=== PATIENT | male | born 1995 | race Caucasian/White ===

== ENCOUNTER 2022-10-19 15:34 | Emergency (ER) | payer OTHER, SELFPAY ==
[2022-10-19 15:35] VITALS: BP 164/87; PULSE 89; RESP 18; TEMP 37.4; O2SAT 99
--- NOTE | 2022-10-19 15:40 | ED.PSYCH ---
HPI - Psych General Chief Complaint: Psychiatric Symptoms Stated Complaint: Hallucinations Time Seen by Provider: 10/19/22 15:40 Source: patient and RN notes reviewed Mode of arrival: EMS Limitations: no limitations History of Present Illness HPI Narrative: Patient states he has had a history of anxiety depression PTSD. He has been hearing voices that telling me he is worthless and no good. He denies any thoughts hurting himself or hurting others. He has an appointment in 2 days with his psychiatrist. complaint: other ( Voices are yelling at him) Onset (ago): hour(s) (8) Duration: constant History of same: Yes Relieving factors: none Exacerbating factors: none Associated psychiatric symptoms: auditory hallucinations Associated symptoms: denies other symptoms and other Treatments prior to arrival: none Related Data Home Medications Medication Instructions Recorded Confirmed bupropion HCl 150 mg tablet,12 hr 150 mg PO DAILY 10/19/22 10/19/22 sustained-release risperidone 0.5 mg tablet 0.5 mg PO BID 10/19/22 10/19/22 (Risperdal) Allergies Allergy/AdvReac Type Severity Reaction Status Date / Time No Known Allergies Allergy Verified 10/19/22 15:48 Review of Systems Review of Systems: All systems reviewed & are unremarkable except as noted in HPI and below Psychiatric: Psychiatric: Denies homicidal ideation and Denies suicidal ideation PMFSH Past Medical History Medical History (Updated 10/19/22 @ 18:46 by Angelo Herring MD) Anxiety and depression PTSD (post-traumatic stress disorder) Surgical History Surgical History (Updated 10/19/22 @ 15:47 by Angelo Herring MD) History of tonsillectomy and adenoidectomy Social History Social History (Updated 10/19/22 @ 16:47 by Angelo Herring MD) Smoking packs per day: 1 Smoking cigarettes per day: 20.0 Smoking status: Current every day smoker Tobacco type: cigarettes and e-cigarettes/vaping Substance use: current Substance use type: marijuana Other substance usage details: Daily Exam Const: General: healthy appearing, no acute distress and alert Nutritional Appearance: well nourished and obese morbidly obese Orientation/consciousness: patient oriented x3 Limitations: no limitations HENMT: Head: normal to inspection Ears: external ears normal Face/Nose/Sinus: Normal external nose present Face and sinus: normal facial exam Mouth: Yes moist mucous membranes abnormal Eyes: Conjunctivae: conjunctivae normal Pupils: Equal, round and reactive pupils present EOM: EOMs intact bilaterally Neck: Neck: normal visual inspection Resp: Effort & Inspection: normal respiratory effort Auscultation: clear to auscultation bilaterally Cardio: Rate: regular rate Rhythm: regular rhythm GI: GI Palp: Yes Soft to palpation and No Tenderness to palpation present (GI) Auscultation: normal bowel sounds Back/Spine/Pelvis: Cervical Spine: cervical ROM normal Thoracic/Lumbar Spine: thoraco-lumbar ROM normal Skin: General skin exam: normal color Rashes: no rashes Neuro: General: patient oriented x3, moves all extremities, no focal motor deficits and CN's II-XI intact bilaterally Speech: normal speech Gait exam (Neuro): Normal gait present Extrem: General: normal to inspection and no clubbing, cyanosis or edema Psych: Affect: normal affect Attitude: cooperative Course Course Emergency Course: [facility] counselor here and have evaluated the patient feel he can be deflected home with a safety plan. He will follow-up with his psychiatrist in 2 days as scheduled. Vital Signs Vital signs: Vital Signs Temperature 37.4 C 10/19/22 15:35 Pulse Rate 89 10/19/22 15:35 Respiratory Rate 18 10/19/22 15:35 Blood Pressure 164/87 H 10/19/22 15:35 Pulse Oximetry 99 10/19/22 15:35 Oxygen Delivery Room Air 10/19/22 15:35 Temperature 36.7 C 10/19/22 17:00 Pulse Rate 84 10/19/22 17:00 Respiratory Rate 16 09/29
[2022-10-19 16:16] LABS: Basophils Absolute Auto 0.05 K/mm3 (0.00-0.10); Basophils Percent Auto 0.6 % (0.0-1.0); Eosinophils Absolute Auto 0.17 K/mm3 (0.02-0.50); Eosinophils Percent Auto 1.9 % (1.0-6.0); Hematocrit 38.7 % (40.0-54.0); Hemoglobin 13.6 g/dL (14.0-18.0); Immature Granulocyte Absolute 0.05 K/mm3 (0.00-0.00); Immature Granulocyte Percent A 0.6 % (0.0-0.0); Lymphocytes Absolute Auto 1.95 K/mm3 (1.10-4.50); Lymphocytes Percent Auto 21.6 % (18.0-42.0); Mean Corpuscular HGB Conc 35.1 g/dL (32.0-36.0); Mean Corpuscular Hemoglobin 32.7 pg (27.0-31.0); Mean Platelet Volume 9.2 fl (8.7-11.0); Monocytes Absolute Auto 0.67 K/mm3 (0.10-0.90); Monocytes Percent Auto 7.4 % (2.0-11.0); Neutrophils Absolute Auto 6.1 K/mm3 (1.7-7.2); Neutrophils Percent Auto 67.9 % (50.0-70.0); Platelet Count Result 246 K/mm3 (150-420); Red Blood Count 4.16 M/mm3 (4.70-6.10); Red Cell Distribution Width 12.1 % (11.6-14.4)
[2022-10-19 16:18] LABS: Appearance Urine Clear (Clear); Bilirubin Urine Negative (Negative); Blood Urine Negative (Negative); Color Urine Light Yellow (Yellow); Glucose Urine UA Negative (Negative); Ketones Urine Negative (Negative); Leukocyte Esterase Ur Negative LEU/UL (Negative); Nitrate Urine Negative (Negative); Protein Urine Trace (Negative); Urobilinogen Urine 0.2 mg/dL (0.2-1.0); pH Urine 6.5 (5.0-8.0)
[2022-10-19 16:33] LABS: Amphetamine Screen Urine Negative (Negative); Barbiturate Screen Urine Negative (Negative); Benzodiazepines Screen Urine Negative (Negative); Cannabinoid Screen Urine Positive (Negative); Cocaine Screen Urine Negative (Negative); Methadone Screen Urine Negative (Negative); Opiate Screen Urine Negative (Negative); Phencyclidine Screen Urine Negative (Negative)
[2022-10-19 16:34] LABS: Add Urine Microscopic? YES; Bacteria Urine None seen /hpf; RBC Urine None seen /hpf (0-2); Squamous Epithelial Cell Urine Rare /hpf (Few); WBC Urine None seen /hpf (0-3)
[2022-10-19 16:40] LABS: Acetaminophen 0 ug/mL (10-30); Alanine Aminotransferase 41 U/L (16-63); Albumin Level 3.5 g/dL (3.4-5.0); Alkaline Phosphatase 74 U/L (46-116); Anion Gap 7 mmol/L (8-16); Aspartate Amino Transferase 32 U/L (15-37); Bilirubin,Total 0.4 mg/dL (0.00-1.00); Blood Urea Nitrogen 10 mg/dL (7-18); Calcium 11.9 mg/dL (8.5-10.1); Carbon Dioxide 29 mmol/L (21-32); Chloride 105 mmol/L (98-108); Estimated CRCL calculation 185 ml/min; Estimated Glomerular Filt Rate > 60; Ethanol < 3 mg/dL (0-6); Glucose 130 mg/dL (70-99); Osmolality Calculated 293 mOsm/kg (285-295); Potassium 4.2 mmol/L (3.5-5.1); Salicylate 1.4 mg/dL (2.8-20.0); Sodium 141 mmol/L (136-145); Thyroid Stimulating Hormone 2.34 uIU/mL (0.36-3.74); Total Protein 7.2 g/dL (6.4-8.2)
[2022-10-19 17:00] VITALS: BP 132/79; PULSE 84; RESP 16; TEMP 36.7; O2SAT 97
[2022-10-19 19:00] VITALS: BP 152/75; PULSE 75; RESP 16; TEMP 36.7; O2SAT 100
== END 2022-10-19 19:18 | disposition home or self-care (01) ==
PROVIDERS: Emergency Provider Emergency Medicine
DX: F25.9 Schizoaffective disorder, unspecified (principal); F41.9 Anxiety disorder, unspecified; F32.A Depression, unspecified; F17.210 Nicotine dependence, cigarettes, uncomplicated
CPT/HCPCS: 36415; 80053; 80307; 81001; 84443; 85025; 99284

== ENCOUNTER 2024-08-30 10:06 | Emergency (ER) | payer SELFPAY ==
[2024-08-30] VITALS (11 sets, daily range): BP systolic 169–186; BP diastolic 87–109; PULSE 98–118; RESP 19–27; TEMP 36.2; O2SAT 93–97
--- NOTE | 2024-08-30 10:14 | ECG_ITS ---
Test Date: 2024-08-30 10:21:54 Measurements Intervals [place] Rate: 98 P: 63 GA: 174 QRS: 28 QRSD: 120 T: 123 QT: 325 QTc: 416 Interpretive Statements SINUS RHYTHM WITH MARKED SINUS ARRHYTHMIA MODERATE INTRAVENTRICULAR CONDUCTION DELAY [110+ ms QRS DURATION] ST DEVIATION AND MODERATE T-WAVE ABNORMALITY, CONSIDER LATERAL ISCHEMIA [-0.1+ mV T-WAVE IN I/aVL/V5/V6] No previous ECG available for comparison Electronically Signed On 09-03-2024 22:36:35 CDT by Yancy Meek M.D.
[2024-08-30 10:27] LABS: Hematocrit 40.8 % (40.0-54.0); Hemoglobin 14.2 g/dL (14.0-18.0); Immature Granulocyte Percent A 0.4 % (0.0-0.0); Lymphocytes Absolute Auto 1.49 K/mm3 (1.10-4.50); Mean Corpuscular HGB Conc 34.8 g/dL (32-36); Mean Corpuscular Hemoglobin 31.8 pg (27.0-31.0); Mean Corpuscular Volume 91.5 fL (78.0-102.0); Nucleated Red Blood Cells Absolute Auto 0.00 K/mm3 (0.00-0.00); Nucleated Red Blood Cells Perc 0.0 % (0-0.0); Platelet Count Result 236 K/mm3 (150-420); Red Blood Count 4.46 M/mm3 (4.70-6.10); White Blood Count 6.8 K/mm3 (4.8-10.8)
[2024-08-30 10:40] LABS: Alanine Aminotransferase 71 U/L (6-50); Albumin Level 4.2 g/dL (3.5-5.1); Alkaline Phosphatase 92 U/L (38-126); Anion Gap 6 mmol/L (4-12); Aspartate Amino Transferase 54 U/L (17-59); Bilirubin,Total 0.7 mg/dL (0.2-1.3); Blood Urea Nitrogen 14 mg/dL (9-20); Calcium 11.7 mg/dL (8.4-10.2); Carbon Dioxide 25 mmol/L (22-30); Chloride 108 mmol/L (98-107); Estimated CRCL calculation 226 ml/min; Estimated Glomerular Filt Rate > 60; Glucose 264 mg/dL (65-110); Osmolality Calculated 297 mOsm/kg (285-295); Potassium 4.0 mmol/L (3.4-5.0); Sodium 139 mmol/L (137-145); Total Protein 7.4 g/dL (6.3-8.2)
[2024-08-30 10:53] LABS: Troponin I < 0.012 ng/mL (0.000-0.034)
--- NOTE | 2024-08-30 10:56 | ED.GENADULT ---
HPI - General Adult General Chief complaint: Unspecified Stated complaint: concerns of blood pressure Time Seen by Provider: 08/30/24 10:12 Source: patient Mode of arrival: ambulatory Limitations: no limitations History of Present Illness HPI narrative: this is a 29-year-old male with history of morbid obesity presents with elevated blood pressure has been having abnormal blood pressure readings in the past but today while at work had a higher than usual reading, patient has no blurry vision no headache no chest pain or shortness of breath no fever chills no abdominal pain no flank pain no dysuria. Onset (ago): day(s) Related Data Home Medications ?Medication ?Instructions ?Recorded ?Confirmed ?Last Taken ?Type bupropion HCl 150 mg tablet,12 hr 150 mg PO DAILY 10/19/22 10/19/22 Unknown History sustained-release risperidone 0.5 mg tablet 0.5 mg PO BID 10/19/22 10/19/22 Unknown History (Risperdal) Allergies Allergy/AdvReac Type Severity Reaction Status Date / Time No Known Allergies Allergy Verified 08/30/24 10:27 Review of Systems Review of Systems: All systems reviewed & are unremarkable except as noted in HPI and below PMFSH Past Medical History Medical History Anxiety and depression PTSD (post-traumatic stress disorder) Surgical History Surgical History History of tonsillectomy and adenoidectomy Social History Social History Smoking packs per day: 1 Smoking cigarettes per day: 20.0 Smoking status: Current every day smoker Tobacco type: cigarettes and e-cigarettes/vaping Substance use: current Substance use type: marijuana Other substance usage details: Daily Exam Const: General: cooperative, healthy appearing, comfortable, no acute distress and well developed Eyes: General: appearance normal, both eyes and all related structures Neck: Neck: normal visual inspection, full ROM, no lymphadenopathy and no meningeal signs Chest: Chest palpation & inspection: normal inspection of the chest and normal palpation of entire chest wall Resp: Effort & Inspection: normal respiratory effort and able to speak in complete sentences Cardio: Jugular venous distension: no JVD Palpation: normal PMI Rate: regular rate Rhythm: regular rhythm Heart sounds: S1 normal heart sound present and S2 normal heart sound present GI: Inspection: normal to inspection : General: Yes bimanual renal exam normal bilaterally Course Course Emergency Course: Patient had elevated blood pressure of 180/108, EKG shows some normal sinus rhythm had blood work performed including troponin which was negative. Patient received 50mg of propofol which after reassessment blood pressure has improved. Advised patient to follow with his primary for further evaluation and treatment will be sending medication to control blood pressure to his local pharmacy. Vital Signs Vital signs: Vital Signs Temperature 36.2 C L 08/30/24 10:06 Pulse Rate 114 H 08/30/24 10:06 Respiratory Rate 27 H 08/30/24 10:06 Blood Pressure 180/108 H 08/30/24 10:06 Pulse Oximetry 93 08/30/24 10:06 Oxygen Delivery Room Air 08/30/24 10:06 Temperature 36.2 C L 08/30/24 10:06 Pulse Rate 118 H 08/30/24 10:10 Respiratory Rate 27 H 08/30/24 10:06 Blood Pressure 180/108 H 08/30/24 10:06 Pulse Oximetry 93 08/30/24 10:06 Oxygen Delivery Room Air 08/30/24 10:06 Medical Decision Making Vital Signs Vital Signs: Vital Signs Temperature 36.2 C L 08/30/24 10:06 Pulse Rate 114 H 08/30/24 10:06 Respiratory Rate 27 H 08/30/24 10:06 Blood Pressure 180/108 H 08/30/24 10:06 Pulse Oximetry 93 08/30/24 10:06 Oxygen Delivery Room Air 08/30/24 10:06 Temperature 36.2 C L 08/30/24 10:06 Pulse Rate 118 H 08/30/24 10:10 Respiratory Rate 27 H 08/30/24 10:06 Blood Pressure 180/108 H 08/30/24 10:06 Pulse Oximetry 93 08/30/24 10:06 Oxygen Delivery Room Air 08/30/24 10:06 Lab Data 08/30/24 10:23 08/30/24 10:23 Labs: Lab Results 08/30/24 Range/Units 10:23 WBC 6.8 (4.8-10.8) K/mm3 RBC 4.46 L (4.70-6.10) M/mm3 Hgb 14.2 (14.0-18.0) g/dL Hct 40.8 (40.0-54.0) % MCV 91.5 (78.0-102.0) fL MCH 31.8 H (27.0-31.0) pg MCHC 34.8 (32-36) g/dL RDW 12.5 (11.6-14.4) % Plt Count 236 (150-420) K/mm3 MPV 9.8 (8.7-11.0) fl Immature Gran % (Auto) 0.4 H (0.0-0.0) % Neut % (Auto) 67.5 (50.0-70.0) % Lymph % (Auto) 21.9 (18.0-42.0) % [place] % (Auto) 7.7 (2.0-11.0) % Eos % (Auto) 2.1 (1.0-6.0) % Baso % (Auto) 0.4 (0.0-1.0) % Lymph # (Auto) 1.49 (1.10-4.50) K/mm3 [place] # (Auto) 0.52 (0.10-0.90) K/mm3 Eos # (Auto) 0.14 (0.02-0.50) K/mm3 Baso # (Auto) 0.03 (0.00-0.10) K/mm3 Abs Immat Gran (auto) 0.03 H (0.00-0.00) K/mm3 Absolute Neuts (auto) 4.58 (1.70-7.20) K/mm3 Absolute Nucleated RBC 0.00 (0.00-0.00) K/mm3 Nucleated RBC % 0.0 (0-0.0) % Sodium 139 (137-145) mmol/L Potassium 4.0 (3.4-5.0) mmol/L Chloride 108 H (98-107) mmol/L Carbon Dioxide 25 (22-30) mmol/L Anion Gap 6 (4-12) mmol/L BUN 14 (9-20) mg/dL Creatinine 0.77 (0.7-1.3) mg/dL Estim Creat Clear Calc 226 ml/min Estimated GFR > 60 (59 - ) Glucose 264 H (65-110) mg/dL Calculated Osmolality 297 H (285-295) mOsm/kg Calcium 11.7 H (8.4-10.2) mg/dL Total Bilirubin 0.7 (0.2-1.3) mg/dL AST 54 (17-59) U/L ALT 71 H (6-50) U/L Alkaline Phosphatase 92 (38-126) U/L Troponin I < 0.012 (0.000-0.034) ng/mL Total Protein 7.4 (6.3-8.2) g/dL Albumin 4.2 (3.5-5.1) g/dL Critical Care Time Critical Care Time Critical Care Time: No Discharge Plan Discharge Clinical Impression: Hypertension Qualifiers: Hypertension type: unspecified Qualified Code(s): I10 - Essential (primary) hypertension Patient Disposition: Home Condition: Stable Instructions: Antibiotic Form, Chronic Hypertension (ED) Additional Instructions: advised patient to take medication as prescribed and to follow with primary within the next 3 to 5 days for further evaluation and treatment. Patient Language: Kinyarwanda Prescriptions: New losartan-hydrochlorothiazide 100-12.5 mg tablet 1 tablet PO DAILY Qty: 20 0RF No Action bupropion HCl 150 mg Tablet Sustained-Release 12 Hr 150 mg PO DAILY risperidone [Risperdal] 0.5 mg Tablet 0.5 mg PO BID Follow-up/Referrals: PHYSICIAN,CYLINDER DIE MACHINE OPERATOR [Primary Care Provider] - Time of Disposition: 11:01
--- OUTSIDE RECORDS SUMMARY | 2024-08-30 10:56 | XMS_ITS | Encounter Summary ---
Author Organization [facility] Address [facility] [place] [address] Care Team Providers Care Car Escort Name Role Phone Jaci Dill NP Primary Care Provider [phone] Peggy Feng MD Primary Care Provider [phone] Kavita Beebe MD Primary Care Provider [phone] Encounter Details Date Type Department Care Team (Late st Contact Info) Description 05/14/2017 Abstract [facility] CONVERSION [address] [place] [address] , Generic ConversionMD Social History Tobacco Use Types Packs/Day Years Used Date Smoking Tobacco: Never Assessed Sex and Gender Information Value Date Recorded Sex Assigned at Male 03/28/2024 9:57 AM CARDIAC CARE UNIT NURSE Legal Sex Male 11:04 PM CARDIAC CARE UNIT NURSE Gender Identity Not on file Sexual Orientation Not on file documented as of this encounter Plan of Treatment Not on file documented as of this encounter Visit Diagnoses Not on filedocumented in this encounter Care Teams Car Escort Relationship Specialty Start Date End Date Jaci Dill NP PCP - General Nurse Practitioner Family 11/30/2112/02/21 Peggy Feng MD [address] [place] [address] PCP - General INTERNAL MEDICINE 12/10/21 12/31/21 Kavita Beebe MD [address] [place] [address] [place] [address] PCP - General FAMILY PRACTICE 03/28/24 documented as of this encounter
--- OUTSIDE RECORDS SUMMARY | 2024-08-30 10:56 | XMS_ITS | Clinical Summary ---
Author Organization [facility] Address [address] [place] [id number] Care Team Providers Care Planogrammer Name Role Phone Kavita Beebe MD Primary Care Provider [phone] Allergies No known active allergies Medications buPROPion XL (WELLBUTRIN XL) 300 MG 24 hr tablet Take 1 tablet (300 mg total) by mouth daily. Active risperiDONE (RISPERDAL M-TABS) 2 MG disintegrating tablet Take 1 tablet (2 mg total) by mouth daily. Active ondansetron (ZOFRAN-ODT) 4 MG disintegrating tablet Take 1 tablet (4 mg total) by mouth every 8 (eight) hours as needed for Nausea. 20 tablet Active Active Problems Problem Noted Date Diagnosed Date Scrotal abscess 12/10/2021 Yeast infection 12/10/2021 Diabetes ([facility]) 12/03/2021 Hypertension 12/03/2021 Cellulitis 12/01/2021 Arthritis 08/07/2013 Back pain 08/07/2013 Encounters Date Type Department Care Team Description 07/16/2024 6:49 AM CDT - 07/16/2024 7:34 AM CDT Emergency [facility] [address] [facility] [place] [address] Naresh Almeida MD URI (With nausea and vomiting) Discharge Disposition: Home or Self Care (Routine Discharge) 07/16/2024 Travel from Last 3 Months Immunizations Immunization Administration Dates Next Due Dtap 12/13/2000,10/03/1997,01/30/1997 Dtp/Hib 1996,1996 Fluzone 6 Months+ Quad (0.5 mL Prefilled Syringe) 12/03/2021 Hepatitis B (Generic Peds) 01/30/1997 Hepatitis B Pediatric 1996,1996 Hib (Generic) 10/03/1997 Influenza (Generic) 02/01/2003 MMR 12/13/2000,10/03/1997 Meningococcal 10/23/2010 Opv 10/03/1997,1996,1996 Polio IPV (Ipol) 12/13/2000 Tdap (Boostrix) 12/01/2021 Tdap (Generic) 06/22/2012,10/23/2010 Social History Tobacco Use Types Packs/Day Years Used Date Smoking Tobacco: Never Smokeless Tobacco: Current Chew Tobacco Cessation:Ready to Q uit: Not Asked; Counseling Given: Not Answered Alcohol Use Standard Drinks/Week Comments Not Currently 0 (1 standard drink = 0.6 oz pur e alcohol) PHQ-2 Answer Date Recorded PHQ-2 Score - If the patient scores above 3, please move on to questions 3-9 0 12/10/2021 Sex and Gender Information Value Date Recorded Sex Assigned at Male 03/28/2024 9:57 AM IRON CARRIER Legal Sex Male 11:04 PM IRON CARRIER Gender Identity Not on file Sexual Orientation Not on file Last Filed Vital Signs Vital Sign Reading Time Taken Comments Blood Pressure 183/106 07/16/2024 7:30 AM CDT Pulse 84 07/16/2024 6:56 AM CDT Temperature 36.6 C (97.9 F) 07/16/2024 6:56 AM CDT Respiratory Rate 20 07/16/2024 6:56 AM CDT Oxygen Saturation 94% 07/16/2024 7:30 AM CDT Inhaled Oxygen Concentration - - Weight 208.7 kg (460 lb) 07/16/2024 6:56 AM CDT Height 180.3 cm (5' 11) 07/16/2024 6:56 AM CDT Body Mass Index 64.16 07/16/2024 6:56 AM CDT Plan of Treatment Health Maintenance Due Date Last Done Comments Kidney Health Evaluation 1996 Annual Physical 07/08/1999 Diabetes: Retinopathy Eye Exam 2014 Hepatitis C 2014 Pneumococcal Vaccine: Pediatrics (0 to 5 Years) and At-Risk Patients (6 to 49 Years) (1 of 2 - PCV) 07/08/2015 Hemoglobin A1C 03/02/2022 11/30/2021 Lipid Panel 12/01/2022 12/01/2021 COVID-19 Vaccine (1 - 2023- season) 2023 DTaP, Tdap and Td Vaccines (7 - Td or Tdap) 12/02/2031 12/01/2021, 06/22/2012, 10/23/2010, Additional history exists Hepatitis B Vaccines Completed 01/30/1997, 1996, 1996 Meningococcal Vaccine Aged Out 10/23/2010 No soy nissa eligible based on patient's age to complete this topic HPV Vaccines Aged Out No longer eligi ble based on patient's age to complete this topic Meningococcal B Vaccine Aged Out No l onger eligible based on patient's age to complete this topic RSV Immunizations Under 20 Months Aged Out No longer eligible based on patient's age to complete this topic Procedures Procedure Name Priority Date/Time Associated Diagnosis Comments LIPID PANEL Routine 12/01/2021 1:09 AM CDT HEMOGLOBIN, GLYCOSYLATED Routine 11/30/2021 8:57 PM CDT from Last 3 Months or Most Recently Relevant to Health Maintenance Results * (ABNORMAL) LIPID PANEL (12/01/2021 1:09 AM CDT) CHOLESTEROL 161 MG/DL 12/01/2021 2:51 AM CDT [facility] Comment:DESIRABLE: <200 TRIGLYCERIDES 214 MG/DL 12/01/2021 2:51 AM CDT [facility] Comment:200-499 HIGH HDL 27(L) >39 MG/DL 12/01/2021 2:51 AM CDT [facility] LDL-C 91 MG/DL 12/01/2021 2:51 AM T [facility] Comment:<100 OPTIMAL VLDL CALCULATION 43 MG/DL 12/02/19 2:51 AM CDT [facility] Comment:REFERENCE RANGE NOT ESTABLISHED CHOL/HDL RATIO 6.0 12/01/2021 2:51 AM CDT [facility] Comment:REFERENCE RANGE NOT ESTABLISHED LDL/HDL 3.0 12/01/2021 2:51 AM CDT [facility] Comment:REFERENCE RANGE NOT ESTABLISHED NON HDL CHOLESTEROL 134 MG/DL 12/01/2021 2:51 AM CDT [facility] Comment:REFERENCE RANGE NOT ESTABLISHED 12/01/2021 1:09 AM CDT us Haresh Lamas MD LABORATORY Final Result [facility] [address] [place] [address], [place] [phone] * (ABNORMAL) HEMOGLOBIN, GLYCOSYLATED (11/30/2021 8:57 PM CDT) HGB A1C 9.5(H) <5.7 % 12/01/2021 1:45 AM CDT [facility] ESTIMATED AVG GLUCOSE 226(H) 74 - 114 MG/DL 12/01/2021 1:45 AM CDT [facility] 11/30/2021 8:57 PM CDT us Guillermo Oh MD LABORATORY Final Resu lt [facility] [address] [place] [address], [place] [phone] from Last 3 Months or Most Recently Relevant to Health Maintenance Insurance MEDICARE PART A Member Subscriber Plan / Payer (Ef fective 2016-Present) Name:Gordo Garcia Relation to Subscriber:Self Name:Gordo Garcia Payer ID:Not on file Group ID:Not on file Type:[place] Address: [address] [place], [place] MEDICAID Advance Directives * Full Code (Latest Code Status on File) Date Activated Date Inactivated Comments 12/06/2021 10:29 AM 03/28/2024 8:29 AM * Full Code Date Activated Date Inactivated Comments 12/01/2021 1:47 AM 12/03/2021 6:46 PM Care Teams Planogrammer Relationship Specialty Start Date End Date Kavita Beebe MD [address] [address] [place] [id number] PCP - General FAMILY PRACTICE 03/28/24
[2024-08-30] MEDS: METOPROLOL TARTRATE 50 MG TAB PO (10:59)
== END 2024-08-30 11:06 | disposition home or self-care (01) ==
PROVIDERS: Emergency Provider Emergency Medicine; Referring Provider Family Medicine
DX: I10 Essential (primary) hypertension (principal)
CPT/HCPCS: 36415; 80053; 84484; 85025; 93005; 99283; 99284; A9270